=== PATIENT | male | born 1950 | race Caucasian/White ===

== ENCOUNTER → 2020-04-10 | Outpatient (CLI) | payer MEDICARE ==
--- NOTE | 2020-04-10 13:09 | CT ---
EXAMINATION TYPE: CT urogram wo/w con DATE OF EXAM: 04/10/2020 COMPARISON: None HISTORY: Hematuria for years. CT DLP: 1491.7 mGycm CONTRAST: Performed and without and with IV Contrast, patient injected with 100 mL of Isovue 300. CT Urography was performed with unenhanced followed by enhanced images of the kidneys, ureters and ur inary bladder. Delayed images were obtained. 3d reconstruction was performed at a separate work sta tion. FINDINGS: KIDNEYS/BLADDER: No hydronephrosis. No nephrolithiasis. No distinct renal mass. Urinary bladder gr ossly unremarkable. LUNG BASES-: No visible nodule. No infiltrate. LIVER/GB: No calcified gallstones. No space occupying hepatic lesion. Biliary tree is of normal ca liber. PANCREAS: No inflammation. No distinct mass. SPLEEN: No splenic enlargement. No lesion seen. ADRENALS: No nodule. No thickening. BOWEL: Normal appendix. Normal bowel caliber. No inflammation. GENITAL ORGANS: No gross abnormality. LYMPH NODES: No greater than 1cm abdominal or pelvic lymph nodes are appreciated. AORTA: No significant abnormality. OSSEOUS STRUCTURES: No significant abnormality is seen. OTHER: No significant additional abnormality is seen. IMPRESSION: 1. No distinct abnormality to account for the patient's symptoms at this time.
== END | disposition home or self-care (01) ==
LOC: RADCTMAIN 11:08
PROVIDERS: ATTEND Urology
DX: R31.1 Benign essential microscopic hematuria (principal)
CPT/HCPCS: 82565; 84520; 74178; 36415; 74400; Q9967

== ENCOUNTER 2023-07-28 11:25 | Day surgery (SDC) | payer MEDICARE ==
[~2023-07-28 11:25] MED LIST: SODIUM CHLORIDE 0.9% 1,000 ML IV SCH; ceFAZolin 1 GM in SODIUM CHLORIDE 0.9% IRRIG BTL 250 ML IRRIGATION PRN
[2023-07-28 11:57] VITALS: RESP 18; TEMP 97.1
[2023-07-28 11:58] LABS: Basophils % (A) 1 %; Eosinophils # (A) 0.1 k/uL (0-0.7); Eosinophils % (A) 1 %; HCT 44.8 % (39.0-53.0); HGB 14.7 gm/dL (13.0-17.5); Lymphocytes # (A) 2.4 k/uL (1.0-4.8); Lymphocytes % (A) 39 %; MCH 30.1 pg (25.0-35.0); MCHC 32.8 g/dL (31.0-37.0); MCV 91.7 fL (80.0-100.0); Mean Platelet Volume 8.1; Monocytes # (A) 0.4 k/uL (0-1.0); Monocytes % (A) 6 %; Neutrophils # (A) 3.2 k/uL (1.3-7.7); Neutrophils % (A) 51 %; Platelet Count 234 k/uL (150-450); RBC 4.89 m/uL (4.30-5.90); RDW 13.8 % (11.5-15.5); WBC 6.3 k/uL (3.8-10.6)
[2023-07-28 12:22] LABS: African American GFR (CKD) 76 (>60 ml/min/1.73 sqM); Anion Gap 10 mmol/L; Blood Urea Nitrogen 19 mg/dL (9-20); Calcium 9.6 mg/dL (8.4-10.2); Carbon Dioxide 24 mmol/L (22-30); Chloride 104 mmol/L (98-107); Glucose 93 mg/dL (74-99); Non-African American GFR(CKD) 66 (>60 ml/min/1.73 sqM); Potassium 4.2 mmol/L (3.5-5.1); Sodium 138 mmol/L (137-145)
[2023-07-28] MEDS ORDERED: fentaNYL (PF) 50 MCG/ML 2 ML AMP IVP ONE ×2 (15:11→15:12)
[2023-07-28] MEDS ORDERED: MIDAZOLAM 2 MG/2 ML VIAL IVP ONE ×2 (15:11→15:12)
[2023-07-28] MEDS ORDERED: LIDOCAINE 1% INJ 10MG/ML (20 ML MDV) SQ ONE (15:13)
[2023-07-28 17:29] VITALS: BP 136/84; PULSE 80
--- NOTE | 2023-07-28 19:53 | P.PCN ---
Description of Procedure: CARDIOLOGY PROCEDURE NOTE Print Inspector: Dr. Rome Zuniga Procedure performed: Dual chamber permanent pacemaker generator change Site: Left subclavian Indications: Sick Sinus Syndrome, end of battery life Complications: None Blood Loss: Minimal Description of Procedure: After the risks, benefits, and alternatives of the above-mentioned procedure was explained in detail with the patient, informed consent was obtained. The patient was taken to the cardiac catheterization suite where the left subclavian area was sterily prepped and draped in the usual fashion. Patient was given IV Versed and fentanyl for sedation. The skin over the existing pulse generator was infiltrated with lidocaine. An incision was made in the skin and was deepened until the pectoral fascia was exposed. Hemostasis was obtained. The existing pulse generator was pulled out of the pocket. The leads were disconnected and were checked for thresholds. The existing leads were then inserted into the appropriate position into the new generator. They were then secured with the setscrew provided. The leads and generator were inserted into the pocket with the leads posterior. The subcutaneous tissue was approximated utilizing #2.0 and 3.0 vicryl in an interrupted stitch fashion. The dermal layer was approximated utilizing #4.0 vicryl. The area was cleansed with sterile saline and dried. A sterile 4x4 dressing was applied and the patient was transferred to the post catheterization holding area in stable and satisfactory condition. The patient tolerated the procedure well. Generator Data Resident Caregiver: [employer] Brand: [id number] Hansa XT DR MRI Model #: W1DR01 Serial#: [id number] Right Atrial Bipolar Lead Data: Type: Active fixation lead Model#: 4135 Serial Number: [id number] Right Ventricular Bipolar Lead Data: Type: Active fixation lead Model #: 4136 Serial #: [id number] Stimulation Thresholds: Right atrial bipolar lead pacing and sensing thresholds Voltage: 1.0 V Impedance: 494 ohms P-wave sensin.8 mV Right Ventricular bipolar lead pacing and sensing thresholds Pulse Width: 0.4ms Voltage: 1.0 volts Impedance: 456 ohms R-wave sensin.5 mV Parameter Setting: Pacing mode is AAIR<=>DDDR Lower rate 60 bpm Upper rate 130 bpm Impressions: 1. Successful generator change of a dual chamber permanent pacemaker in the left pectoral site. Plan: 1. Routine post procedure care will be instituted as well as outpatient follow- up surveillance.
== END 2023-07-28 17:16 | disposition home or self-care (01) ==
LOC: CATHEP 11:25
PROVIDERS: ATTEND Internal Medicine
DX: I49.5 Sick sinus syndrome (principal); I10 Essential (primary) hypertension; E78.5 Hyperlipidemia, unspecified; F17.210 Nicotine dependence, cigarettes, uncomplicated; I48.91 Unspecified atrial fibrillation; Z79.899 Other long term (current) drug therapy
CPT/HCPCS: 33228; 80048; 85025; C1785; J2250; J0690; J2001; J3010

== ENCOUNTER 2024-04-12 09:32 | Emergency (ER) | payer MEDICARE ==
[2024-04-12] MEDS: KETOROLAC 15 MG/ML 1 ML VIAL IVP STA (10:35)
[2024-04-12] MEDS: methylPREDNISolone SOD SUCCI 125 MG/2 ML VIAL IV STA (10:36)
[2024-04-12 10:38] LABS: Basophils % (A) 0 %; Eosinophils % (A) 0 %; HCT 34.2 % (39.0-53.0); HGB 11.2 gm/dL (13.0-17.5); Lymphocytes # (A) 0.7 k/uL (1.0-4.8); Lymphocytes % (A) 4 %; MCH 29.4 pg (25.0-35.0); MCHC 32.8 g/dL (31.0-37.0); MCV 89.6 fL (80.0-100.0); Mean Platelet Volume 8.4; Monocytes # (A) 1.2 k/uL (0-1.0); Monocytes % (A) 7 %; Neutrophils % (A) 88 %; Platelet Count 471 k/uL (150-450); RBC 3.82 m/uL (4.30-5.90); RDW 14.1 % (11.5-15.5); WBC 18.1 k/uL (3.8-10.6)
[2024-04-12 10:44] LABS: African American GFR (CKD) 61 (>60 ml/min/1.73 sqM); Anion Gap 11 mmol/L; Blood Urea Nitrogen 52 mg/dL (9-20); Calcium 9.4 mg/dL (8.4-10.2); Carbon Dioxide 21 mmol/L (22-30); Chloride 103 mmol/L (98-107); Glucose 112 mg/dL (74-99); Non-African American GFR(CKD) 53 (>60 ml/min/1.73 sqM); Potassium 4.2 mmol/L (3.5-5.1); Sodium 135 mmol/L (137-145); Uric Acid 7.2 mg/dL (3.5-8.5)
--- NOTE | 2024-04-12 11:05 | XR ---
EXAMINATION TYPE: XR foot complete 3 views each side, bilateral DATE OF EXAM: 04/12/2024 Comparison: None Clinical History: 73-year-old male with pain for one week after jumping injury Findings: There is moderate to severe degenerative change at the first MTP joint on the right and moderate on t he left. Generalized soft tissue swelling bilaterally. Large type II accessory naviculars bilaterally . No flattening of the calcaneus is identified. Moderate size plantar heel spur on the left. There is generalized soft tissue swelling bilaterally. Os peroneum noted on both sides. Possible lucency at the tip of the lateral malleolus on the left AP view. Possible very subtle lucency along the anterior calcaneus and lateral cuboid on the right oblique vi ew Impression: 1. Bilateral generalized soft tissue swelling. 2. Irregularity along the inferior tip of the lateral malleolus on the left AP view. Dedicated ankle radiographs if any point tenderness here. 3. Either projectional artifact versus subtle nondisplaced fractures involving the anterior calcaneus and lateral cuboid on the right (seen only on the oblique view).
--- NOTE | 2024-04-12 12:02 | ED ---
Extremity Problem HPI - General Chief complaint: Extremity Problem,Nontraumatic Stated complaint: Both foot pain/R elbow pain Time Seen by Provider: 04/12/24 09:42 Source: patient, RN notes reviewed Mode of arrival: ambulatory Limitations: no limitations - History of Present Illness Initial comments: 73-year-old male presents emergency department complaint of foot pain, right wrist pain. Patient has severe gout states he is on multiple medications for this. Patient was states he was on medications including steroids for his gout. Patient states he was improving but states that there was concern about possible fracture of his feet as he jumped onto a boat from a seat. Patient has complaints of bilateral foot pain processes right wrist pain and swelling. Patient states has had gout like this in the past is not on the usual. - Related Data Home Medications Medication Instructions Recorded Confirmed Atorvastatin [Lipitor] 20 mg PO HS 07/23/23 07/28/23 Colchicine 0.6 mg PO DAILY 07/23/23 07/28/23 Levothyroxine Sodium [Synthroid] 50 mcg PO DAILY 07/23/23 07/28/23 diazePAM [Valium] 5 mg PO TID PRN 07/23/23 07/28/23 lisinopriL [Zestril] 10 mg PO HS 07/23/23 07/28/23 Previous Rx's Medication Instructions Recorded Divalproex ER [Depakote ER] 500 mg PO BID 30 Days tab.er.24h 06/20/14 risperiDONE [RisperDAL] 2 mg PO HS 30 Days tab 06/20/14 Allergies Allergy/AdvReac Type Severity Reaction Status Date / Time No Known Allergies Allergy Verified 04/12/24 09:39 Review of Systems ROS Statement: Those systems with pertinent positive or pertinent negative responses have been documented in the HPI. ROS Other: All systems not noted in ROS Statement are negative. Past Medical History Past Medical History: Hyperlipidemia, Hypertension, Thyroid Disorder Additional Past Medical History / Comment(s): near syncopal episodes,gout History of Any Multi-Drug Resistant Organisms: None Reported Past Surgical History: Pacemaker Past Anesthesia/Blood Transfusion Reactions: No Reported Reaction Type of Cardiac Device: Unknown Device Placement Date:: unknown Past Psychological History: Anxiety, Depression Smoking Status: Former smoker Past Alcohol Use History: None Reported Past Drug Use History: None Reported General Exam Limitations: no limitations General appearance: alert, in no apparent distress Head exam: Present: atraumatic, normocephalic, normal inspection Eye exam: Present: normal appearance, PERRL, EOMI. Absent: scleral icterus, conjunctival injection, periorbital swelling ENT exam: Present: normal exam, normal oropharynx, mucous membranes moist Neck exam: Present: normal inspection, full ROM. Absent: tenderness, meningismus, lymphadenopathy Respiratory exam: Present: normal lung sounds bilaterally. Absent: respiratory distress, wheezes, rales, rhonchi, stridor Cardiovascular Exam: Present: regular rate, normal rhythm, normal heart sounds. Absent: systolic murmur, diastolic murmur, rubs, gallop, clicks Extremities exam: Present: other (Foot swelling, erythematous, right wrist swelling erythematous) Neurological exam: Present: alert Skin exam: Present: warm, dry, intact, normal color. Absent: rash Course Vital Signs 04/12/24 09:37 Temperature 98.7 F Pulse Rate 91 Respiratory 20 Rate Blood Pressure 98/64 O2 Sat by Pulse 98 Oximetry Medical Decision Making - Medical Decision Making Was pt. sent in by a medical professional or institution (, PA, HORTICULTURAL AGENT, urgent care, hospital, or usp...) When possible be specific @ -No Did you speak to anyone other than the patient for history (EMS, parent, family, police, friend...)? What history was obtained from this source @ -No Did you review nursing and triage notes (agree or disagree)? Why? @ -I reviewed and agree with nursing and triage notes Were old charts reviewed (outside hosp., previous admission, EMS record, old EKG, old radiological studies, urgent care reports/EKG's, usp records)? Report findings @ -No old charts were reviewed Differential Diagnosis (chest pain, altered mental status, abdominal pain women, abdominal pain men, vaginal bleeding, weakness, fever, dyspnea, syncope, headache, dizziness, GI bleed, back pain, seizure, CVA, palpatations, mental health, musculoskeletal)? @ -Gout, septic arthritis, cellulitis, foot fracture EKG interpreted by me (3pts min.). @ -None X-rays interpreted by me (1pt min.). @ -Bilateral foot x-ray no acute have displaced fracture concerning for possible calcaneus fracture recommends further imaging CT interpreted by me (1pt min.). @ -CT right foot no acute fracture U/S interpreted by me (1pt. min.). @ -None done What testing was considered but not performed or refused? (CT, X-rays, U/S, labs)? Why? @ -None What meds were considered but not given or refused? Why? @ -None Did you discuss the management of the patient with other professionals (professionals i.e. Dr., PA, HORTICULTURAL AGENT, lab, RT, psych nurse, social work program coordinator, manager managed care, teacher, horticultural technical officer, adult protective caseworker)? Give summary @ -No Was smoking cessation discussed for >3mins.? @ -No Was critical care preformed (if so, how long)? @ -No Were there social determinants of health that impacted care today? How? (Homelessness, low income, unemployed, alcoholism, drug addiction, transportation, low edu. Level, literacy, decrease access to med. care, longterm, rehab)? @ -No Was there de-escalation of care discussed even if they declined (Discuss DNR or withdrawal of care, Hospice)? DNR status @ -No What co-morbidities impacted this encounter? (DM, HTN, Smoking, COPD, CAD, Cancer, CVA, ARF, Chemo, Hep., AIDS, mental health diagnosis, sleep apnea, morbi d obesity)? @ -Gout Was patient admitted / discharged? Hospital course, mention meds given and route , prescriptions, significant lab abnormalities, going to OR and other pertinent info. @ -Discharge patient has a history of gout similar presentations in the past presented primarily for x-rays of his feet there are no acute fractures identified. Patient is discharged in stable condition with follow-up PCP who is monitoring his treatment. Undiagnosed new problem with uncertain prognosis? @ -No Drug Therapy requiring intensive monitoring for toxicity (Heparin, Nitro, Insulin, Cardizem)? @ -No Were any procedures done? @ -No Diagnosis/symptom? @ -Gout: Acute, or Chronic, or Acute on Chronic? @ -Acute Uncomplicated (without systemic symptoms) or Complicated (systemic symptoms)? @ -None complicated Side effects of treatment? @ -No Exacerbation, Progression, or Severe Exacerbation? @ -No Poses a threat to life or bodily function? How? (Chest pain, [place], [place], pneumonia, PE, COPD, DKA, ARF, appy, cholecystitis, CVA, Diverticulitis, Homicidal, Suicidal, threat to staff... and all critical care pts) @ -No - Lab Data Result diagrams: 04/12/24 10:16 04/12/24 10:16 Lab Results 04/12/24 04/12/24 Range/Units 10:16 10:16 WBC 18.1 H (3.8-10.6) k/uL RBC 3.82 L (4.30-5.90) m/uL Hgb 11.2 L (13.0-17.5) gm/dL Hct 34.2 L (39.0-53.0) % MCV 89.6 (80.0-100.0) fL MCH 29.4 (25.0-35.0) pg MCHC 32.8 (31.0-37.0) g/dL RDW 14.1 (11.5-15.5) % Plt Count 471 H (150-450) k/uL MPV 8.4 Neutrophils % 88 % Lymphocytes % 4 % Monocytes % 7 % Eosinophils % 0 % Basophils % 0 % Neutrophils # 16.0 H (1.3-7.7) k/uL Lymphocytes # 0.7 L (1.0-4.8) k/uL Monocytes # 1.2 H (0-1.0) k/uL Eosinophils # 0.0 (0-0.7) k/uL Basophils # 0.0 (0-0.2) k/uL Sodium 135 L (137-145) mmol/L Potassium 4.2 (3.5-5.1) mmol/L Chloride 103 (98-107) mmol/L Carbon Dioxide 21 L (22-30) mmol/L Anion Gap 11 mmol/L BUN 52 H (9-20) mg/dL Creatinine 1.33 H (0.66-1.25) mg/dL Est GFR (CKD-EPI)AfAm 61 (>60 ml/min/1.73 sqM) Est GFR (CKD-EPI)NonAf 53 (>60 ml/min/1.73 sqM) Glucose 112 H (74-99) mg/dL Uric Acid 7.2 (3.5-8.5) mg/dL Calcium 9.4 (8.4-10.2) mg/dL Disposition Clinical Impression: Gout Disposition: HOME SELF-CARE Condition: Stable Instructions (If sedation given, give patient instructions): Gout (ED) Additional Instructions: Please return to the Emergency Department if symptoms worsen or any other concerns. Is patient prescribed a controlled substance at d/c from ED?: No Referrals: Vikash Prieto MD [Primary Care Provider] - 1-2 days Time of Disposition: 12:28
--- NOTE | 2024-04-12 12:15 | CT ---
EXAMINATION TYPE: CT foot RT wo con DATE OF EXAM: 04/12/2024 COMPARISON: X-ray 04/12/2024 HISTORY: FOOT PAIN. ABNORMAL FOOT XR CT DLP: 358 mGycm Automated exposure control for dose reduction was used. FINDINGS: There is severe first MTP joint arthropathy with multi digit tarsometatarsal arthropathy. Calcaneal s pur noted. There is diffuse soft tissue edema. Multiple tiny densities are seen adjacent to the posterior margin of the talus and lateral malleolus too small to characterize. IMPRESSION: 1. NO ACUTE DISPLACED FRACTURE. TINY SOFT TISSUE OSSIFICATIONS ALONG THE POSTERIOR JOINT SPACE ARE FA VORED TO REPRESENT LIGAMENTOUS CALCIFICATIONS. TINY CHIP OR AVULSION FRACTURE NOT EXCLUDED CORRELATE WITH POINT TENDERNESS. 2. SEVERE ARTHROPATHY OF THE TARSOMETATARSAL AND FIRST MTP JOINT. 3. DIFFUSE SOFT TISSUE EDEMA.
[2024-04-12 12:50] LABS: C Reactive Protein 34.9 mg/dL (<1.0)
[2024-04-12 12:55] VITALS: BP 106/72; PULSE 89; RESP 18; TEMP 98.3
== END 2024-04-12 12:55 | disposition home or self-care (01) ==
LOC: EC 09:32
CPT/HCPCS: 36415; 80048; 84550; 85025; 86140; 96374; 96375; 99284